=== PATIENT | male | born 1965 | race Caucasian/White ===

== ENCOUNTER 2018-08-10 20:39 | Inpatient (IN) ==
--- NOTE | 2018-08-10 21:16 | ED ---
HPI General Chief Complaint: Chest Pain Stated Complaint: chest pain/pain in lft arm/tingling in fingers/wea Time Seen by Provider: 08/10/18 21:00 Source: patient Mode of arrival: ambulatory Limitations: no limitations History of Present Illness MD complaint: Reports chest pain Onset (ago): hour(s) Time: 19:00 Duration: constant Onset: during exertion Pain location: Reports substernal and left chest Severity: moderate Pain radiation: Reports LUE Relieving factors: nothing Related Data Home Medications Medication Instructions Recorded Confirmed aspirin 81 mg PO DAILY 08/10/18 08/10/18 atorvastatin 40 mg PO DAILY 08/10/18 08/10/18 hydrochlorothiazide 25 mg PO DAILY 08/10/18 08/10/18 levothyroxine [Synthroid] 125 mcg PO DAILY 08/10/18 08/10/18 Previous Rx's Medication Instructions Recorded amlodipine [Norvasc] 5 mg PO DAILY #30 tab 08/12/18 metoprolol tartrate 25 mg PO BID #60 tab 08/12/18 Allergies Allergy/AdvReac Type Severity Reaction Status Date / Time No Known Allergies Allergy Verified 08/10/18 20:48 Review of Systems ROS: all other systems reviewed are negative [facility] Medical History Medical History High cholesterol (Acute) Hypertension (Acute) Hypothyroid (Acute) Social History Social History Substance History: No History of Abuse Second Hand Smoke Exposure: No Smoking Status: Former smoker Tobacco Type: Cigarettes How Often Do You Have a Drink Containing Alcohol: 4 or more times a week Recent Travel in [facility] within the Last 8 Weeks: No Recent Out of Country Travel within the Last 8 Weeks: No Immunization History Tetanus Immunization: >5 Years Exam Narrative Exam Narrative: GENERAL: non toxic appearing awake alert no diaphoresis no vomit SKIN: Warm and dry. HEAD: Atraumatic. Normocephalic. EYES: Pupils equal and round. No scleral icterus. No injection or drainage. ENT: No nasal bleeding or discharge. Mucous membranes pink and moist. NECK: Trachea midline. No JVD. CARDIOVASCULAR: Regular rate and rhythm. RESPIRATORY: No accessory muscle use. Clear to auscultation. Breath sounds equal bilaterally. GASTROINTESTINAL: Abdomen morbidly obese Hepatic and splenic margins not palpable. MUSCULOSKELETAL: Extremities without clubbing, cyanosis, or edema. No obvious deformities. NEUROLOGICAL: Awake and alert. No obvious cranial nerve deficits. Motor grossly within normal limits. Five out of 5 muscle strength in the arms and legs. Normal speech. PSYCHIATRIC: Appropriate mood and affect; insight and judgment normal. Course Initial Documented Vital Signs Temperature 98.5 F 08/10/18 20:49 Pulse Rate 74 08/10/18 20:49 Respiratory Rate 20 08/10/18 20:49 Blood Pressure 177/100 H 08/10/18 20:49 Pulse Oximetry 96 08/10/18 20:49 Last Documented Vital Signs Temperature 98.4 F 08/12/18 07:59 Pulse Rate 60 08/12/18 16:00 Respiratory Rate 18 08/12/18 07:59 Blood Pressure 137/71 08/12/18 07:59 Pulse Oximetry 95 08/12/18 07:59 Critical Care Time Critical Care Time: Yes (CARDIAC ISCHEMIA MANAGEMNET NITRO ASA AND HEPARIN AND CLOSE MONITOR FOR ARRHYTHMIA OR REPROFUSION ARRHYTMIA) Total Critical Care Time: 30 Attestation: 30 mins for cardiac ischemia management asa and nitro and then heparin and close cardiac monitoring for possible vfib or reprofusion arrhythmia Medical Decision Making [facility] Narrative Medical decision making narrative: labs trop ekg CHEST xray asa nitro paste and admit to center for am stress test . FIRST TROP IS POSITIVE ADMITTED TO [facility] AND STARTED ON HEPARIN Medical Screen Exam Complete: Yes Emergency Medical Condition: Yes Differential Diagnosis Differential Diagnosis: pt could have GERD vs ACS myocardial ischemia vs costochondritis brachial plexus nerve praxia from muscle spasm paracervical Lab Data Result diagrams: 08/12/18 02:22 08/12/18 02:22 Lab Results 08/10/18 08/10/18 08/10/18 Range/Units 21:05 21:05 23:00 WBC 8.6 (4.0-11.0) th/mm3 RBC 4.48 L (4.50-5.90) mil/mm3 Hgb 14.1 (13.0-17.0) gm/dL Hct 39.9 (39.0-51.0) % MCV 89.2 (80.0-100.0) fL MCH 31.5 (27.0-34.0) pg MCHC 35.3 (32.0-36.0) % RDW 13.7 (11.6-17.2) % Plt Count 261 (150-450) th/mm3 MPV 8.5 (7.0-11.0) fL Neut % (Auto) 65.7 (16.0-70.0) % Lymph % (Auto) 25.4 (9.0-44.0) % [place] % (Auto) 6.6 (0.0-8.0) % Eos % (Auto) 1.3 (0.0-4.0) % Baso % (Auto) 1.0 (0.0-2.0) % Neut # (Auto) 5.7 (1.8-7.7) th/mm3 Lymph # (Auto) 2.2 (1.0-4.8) th/mm3 [place] # (Auto) 0.6 (0.0-0.9) th/mm3 Eos # (Auto) 0.1 (0.0-0.4) th/mm3 Baso # (Auto) 0.1 (0.0-0.2) th/mm3 WBC Differential . Differential Comment Auto diff final PT 9.8 (9.8-11.6) sec INR 1.0 Ratio APTT 25.6 (24.3-30.1) sec Sodium 140 (136-145) meq/L Potassium 4.0 (3.5-5.1) meq/L Chloride 107 (98-107) meq/L Carbon Dioxide 24.1 (21.0-32.0) meq/L Anion Gap 9 (5-15) meq/L BUN 18 (7-18) mg/dL Creatinine 1.25 (0.60-1.30) mg/dL Estimated GFR 60 L (>89) mL/min Random Glucose 129 H (74-106) mg/dL Hemoglobin A1c (4.3-6.0) % Calcium 8.8 (8.5-10.1) mg/dL Total Bilirubin 0.4 (0.2-1.0) mg/dL AST 60 H (15-37) U/L ALT 50 (12-78) U/L Alkaline Phosphatase 75 (45-117) U/L Total Creatine Kinase (39-308) U/L Troponin I 0.06 H (0.02-0.05) ng/mL Total Protein 8.0 (6.4-8.2) g/dL Albumin 3.7 (3.4-5.0) g/dL Triglycerides (42-150) mg/dL Cholesterol (120-200) mg/dL LDL Cholesterol, Calc (0-99) mg/dL HDL Cholesterol (40.0-60.0) mg/dL Cholesterol/HDL Ratio Ratio TSH (0.358-3.740) uIU/mL 08/11/18 08/11/18 08/11/18 Range/Units 03:47 03:47 03:47 WBC 9.2 (4.0-11.0) th/mm3 RBC 4.22 L (4.50-5.90) mil/mm3 Hgb 13.0 (13.0-17.0) gm/dL Hct 37.9 L (39.0-51.0) % MCV 89.9 (80.0-100.0) fL MCH 30.7 (27.0-34.0) pg MCHC 34.2 (32.0-36.0) % RDW 13.8 (11.6-17.2) % Plt Count 245 (150-450) th/mm3 MPV 8.2 (7.0-11.0) fL Neut % (Auto) (16.0-70.0) % Lymph % (Auto) (9.0-44.0) % [place] % (Auto) (0.0-8.0) % Eos % (Auto) (0.0-4.0) % Baso % (Auto) (0.0-2.0) % Neut # (Auto) (1.8-7.7) th/mm3 Lymph # (Auto) (1.0-4.8) th/mm3 [place] # (Auto) (0.0-0.9) th/mm3 Eos # (Auto) (0.0-0.4) th/mm3 Baso # (Auto) (0.0-0.2) th/mm3 WBC Differential Differential Comment PT (9.8-11.6) sec INR Ratio APTT 29.9 (24.3-30.1) sec Sodium (136-145) meq/L Potassium (3.5-5.1) meq/L Chloride (98-107) meq/L Carbon Dioxide (21.0-32.0) meq/L Anion Gap (5-15) meq/L BUN (7-18) mg/dL Creatinine (0.60-1.30) mg/dL Estimated GFR (>89) mL/min Random Glucose (74-106) mg/dL Hemoglobin A1c (4.3-6.0) % Calcium (8.5-10.1) mg/dL Total Bilirubin (0.2-1.0) mg/dL AST (15-37) U/L ALT (12-78) U/L Alkaline Phosphatase (45-117) U/L Total Creatine Kinase 85 (39-308) U/L Troponin I 0.42 H (0.02-0.05) ng/mL Total Protein (6.4-8.2) g/dL Albumin (3.4-5.0) g/dL Triglycerides (42-150) mg/dL Cholesterol (120-200) mg/dL LDL Cholesterol, Calc (0-99) mg/dL HDL Cholesterol (40.0-60.0) mg/dL Cholesterol/HDL Ratio Ratio TSH (0.358-3.740) uIU/mL 08/11/18 08/11/18 08/11/18 Range/Units 10:00 10:00 10:00 WBC 9.7 (4.0-11.0) th/mm3 RBC 4.32 L (4.50-5.90) mil/mm3 Hgb 13.2 (13.0-17.0) gm/dL Hct 39.1 (39.0-51.0) % MCV 90.6 (80.0-100.0) fL MCH 30.6 (27.0-34.0) pg MCHC 33.8 (32.0-36.0) % RDW 13.6 (11.6-17.2) % Plt Count 230 (150-450) th/mm3 MPV 8.5 (7.0-11.0) fL Neut % (Auto) 65.7 (16.0-70.0) % Lymph % (Auto) 27.3 (9.0-44.0) % [place] % (Auto) 5.1 (0.0-8.0) % Eos % (Auto) 1.2 (0.0-4.0) % Baso % (Auto) 0.7 (0.0-2.0) % Neut # (Auto) 6.4 (1.8-7.7) th/mm3 Lymph # (Auto) 2.6 (1.0-4.8) th/mm3 [place] # (Auto) 0.5 (0.0-0.9) th/mm3 Eos # (Auto) 0.1 (0.0-0.4) th/mm3 Baso # (Auto) 0.1 (0.0-0.2) th/mm3 WBC Differential . Differential Comment Auto diff final PT (9.8-11.6) sec INR Ratio APTT (24.3-30.1) sec Sodium 139 (136-145) meq/L Potassium 3.1 L D (3.5-5.1) meq/L Chloride 105 (98-107) meq/L Carbon Dioxide 24.9 (21.0-32.0) meq/L Anion Gap 9 (5-15) meq/L BUN 16 (7-18) mg/dL Creatinine 1.16 (0.60-1.30) mg/dL Estimated GFR 66 L (>89) mL/min Random Glucose 119 H (74-106) mg/dL Hemoglobin A1c 5.9 (4.3-6.0) % Calcium 8.6 (8.5-10.1) mg/dL Total Bilirubin 0.7 (0.2-1.0) mg/dL AST 40 H (15-37) U/L ALT 42 (12-78) U/L Alkaline Phosphatase 69 (45-117) U/L Total Creatine Kinase (39-308) U/L Troponin I 0.20 H (0.02-0.05) ng/mL Total Protein 7.4 D (6.4-8.2) g/dL Albumin 3.5 (3.4-5.0) g/dL Triglycerides 351 H (42-150) mg/dL Cholesterol 225 H (120-200) mg/dL LDL Cholesterol, Calc 112 H (0-99) mg/dL HDL Cholesterol 43.3 (40.0-60.0) mg/dL Cholesterol/HDL Ratio 5.19 Ratio TSH (0.358-3.740) uIU/mL 08/11/18 08/11/18 08/11/18 Range/Units 10:00 10:00 10:00 WBC (4.0-11.0) th/mm3 RBC (4.50-5.90) mil/mm3 Hgb (13.0-17.0) gm/dL Hct (39.0-51.0) % MCV (80.0-100.0) fL MCH (27.0-34.0) pg MCHC (32.0-36.0) % RDW (11.6-17.2) % Plt Count (150-450) th/mm3 MPV (7.0-11.0) fL Neut % (Auto) (16.0-70.0) % Lymph % (Auto) (9.0-44.0) % [place] % (Auto) (0.0-8.0) % Eos % (Auto) (0.0-4.0) % Baso % (Auto) (0.0-2.0) % Neut # (Auto) (1.8-7.7) th/mm3 Lymph # (Auto) (1.0-4.8) th/mm3 [place] # (Auto) (0.0-0.9) th/mm3 Eos # (Auto) (0.0-0.4) th/mm3 Baso # (Auto) (0.0-0.2) th/mm3 WBC Differential Differential Comment PT (9.8-11.6) sec INR Ratio APTT 28.0 (24.3-30.1) sec Sodium (136-145) meq/L Potassium (3.5-5.1) meq/L Chloride (98-107) meq/L Carbon Dioxide (21.0-32.0) meq/L Anion Gap (5-15) meq/L BUN (7-18) mg/dL Creatinine (0.60-1.30) mg/dL Estimated GFR (>89) mL/min Random Glucose (74-106) mg/dL Hemoglobin A1c (4.3-6.0) % Calcium (8.5-10.1) mg/dL Total Bilirubin (0.2-1.0) mg/dL AST (15-37) U/L ALT (12-78) U/L Alkaline Phosphatase (45-117) U/L Total Creatine Kinase (39-308) U/L Troponin I Cancelled (0.02-0.05) ng/mL Total Protein (6.4-8.2) g/dL Albumin (3.4-5.0) g/dL Triglycerides (42-150) mg/dL Cholesterol (120-200) mg/dL LDL Cholesterol, Calc (0-99) mg/dL HDL Cholesterol (40.0-60.0) mg/dL Cholesterol/HDL Ratio Ratio TSH 4.350 H (0.358-3.740) uIU/mL 08/11/18 08/12/18 08/12/18 Range/Units 19:09 02:22 02:22 WBC 6.9 (4.0-11.0) th/mm3 RBC 4.18 L (4.50-5.90) mil/mm3 Hgb 12.8 L (13.0-17.0) gm/dL Hct 37.7 L (39.0-51.0) % MCV 90.2 (80.0-100.0) fL MCH 30.7 (27.0-34.0) pg MCHC 34.1 (32.0-36.0) % RDW 13.8 (11.6-17.2) % Plt Count 222 (150-450) th/mm3 MPV 8.4 (7.0-11.0) fL Neut % (Auto) (16.0-70.0) % Lymph % (Auto) (9.0-44.0) % [place] % (Auto) (0.0-8.0) % Eos % (Auto) (0.0-4.0) % Baso % (Auto) (0.0-2.0) % Neut # (Auto) (1.8-7.7) th/mm3 Lymph # (Auto) (1.0-4.8) th/mm3 [place] # (Auto) (0.0-0.9) th/mm3 Eos # (Auto) (0.0-0.4) th/mm3 Baso # (Auto) (0.0-0.2) th/mm3 WBC Differential Differential Comment PT (9.8-11.6) sec INR Ratio APTT 26.1 (24.3-30.1) sec Sodium 140 (136-145) meq/L Potassium 3.5 (3.5-5.1) meq/L Chloride 107 (98-107) meq/L Carbon Dioxide 26.7 (21.0-32.0) meq/L Anion Gap 6 (5-15) meq/L BUN 15 (7-18) mg/dL Creatinine 1.07 (0.60-1.30) mg/dL Estimated GFR 72 L (>89) mL/min Random Glucose 91 (74-106) mg/dL Hemoglobin A1c (4.3-6.0) % Calcium 8.2 L (8.5-10.1) mg/dL Total Bilirubin (0.2-1.0) mg/dL AST (15-37) U/L ALT (12-78) U/L Alkaline Phosphatase (45-117) U/L Total Creatine Kinase (39-308) U/L Troponin I (0.02-0.05) ng/mL Total Protein (6.4-8.2) g/dL Albumin (3.4-5.0) g/dL Triglycerides (42-150) mg/dL Cholesterol (120-200) mg/dL LDL Cholesterol, Calc (0-99) mg/dL HDL Cholesterol (40.0-60.0) mg/dL Cholesterol/HDL Ratio Ratio TSH (0.358-3.740) uIU/mL 08/12/18 08/12/18 Range/Units 02:22 10:21 WBC (4.0-11.0) th/mm3 RBC (4.50-5.90) mil/mm3 Hgb (13.0-17.0) gm/dL Hct (39.0-51.0) % MCV (80.0-100.0) fL MCH (27.0-34.0) pg MCHC (32.0-36.0) % RDW (11.6-17.2) % Plt Count (150-450) th/mm3 MPV (7.0-11.0) fL Neut % (Auto) (16.0-70.0) % Lymph % (Auto) (9.0-44.0) % [place] % (Auto) (0.0-8.0) % Eos % (Auto) (0.0-4.0) % Baso % (Auto) (0.0-2.0) % Neut # (Auto) (1.8-7.7) th/mm3 Lymph # (Auto) (1.0-4.8) th/mm3 [place] # (Auto) (0.0-0.9) th/mm3 Eos # (Auto) (0.0-0.4) th/mm3 Baso # (Auto) (0.0-0.2) th/mm3 WBC Differential Differential Comment PT (9.8-11.6) sec INR Ratio APTT 29.9 33.1 H (24.3-30.1) sec Sodium (136-145) meq/L Potassium (3.5-5.1) meq/L Chloride (98-107) meq/L Carbon Dioxide (21.0-32.0) meq/L Anion Gap (5-15) meq/L BUN (7-18) mg/dL Creatinine (0.60-1.30) mg/dL Estimated GFR (>89) mL/min Random Glucose (74-106) mg/dL Hemoglobin A1c (4.3-6.0) % Calcium (8.5-10.1) mg/dL Total Bilirubin (0.2-1.0) mg/dL AST (15-37) U/L ALT (12-78) U/L Alkaline Phosphatase (45-117) U/L Total Creatine Kinase (39-308) U/L Troponin I (0.02-0.05) ng/mL Total Protein (6.4-8.2) g/dL Albumin (3.4-5.0) g/dL Triglycerides (42-150) mg/dL Cholesterol (120-200) mg/dL LDL Cholesterol, Calc (0-99) mg/dL HDL Cholesterol (40.0-60.0) mg/dL Cholesterol/HDL Ratio Ratio TSH (0.358-3.740) uIU/mL Imaging Data Radiologist's impression: Chest X-Ray 08/10/18 21:01 CONCLUSION: No acute cardiopulmonary disease identified. Discharge Plan Discharge Disposition Patient Disposition: Discharge Home Discharge Condition Condition: Good Discharge Order Discharge Orders: Discharge Order (Routine); Ordered 08/12/18 Ordered By: Marcy Vargas Physicians Team ED Provider: Yousif Camacho Primary Care Provider: UNKNOWN, Attending Provider: Marcy Vargas Other Providers: Saturnino Burr Status ED Status: Left Department Discharge Information Discharge Date/Time: 08/11/18 00:31
--- NOTE | 2018-08-10 21:45 | XR ---
EXAM DATE: 08/10/2018 9:01 PM EDT AGE/SEX: 53 years / Male INDICATIONS: Chest pain and left arm discomfort. CLINICAL DATA: This is the patient's initial encounter. Patient reports that signs and symptoms have been present for 1 day and indicates a pain score of 5/10. MEDICAL/SURGICAL HISTORY: Hypercholesterolemia. Hyperthyroidism. Hypothyroidism. None. COMPARISON: No prior exams available for comparison. FINDINGS: Single AP view of the chest. The lungs are clear. Cardiomediastinal silhouette within nor mal limits. No evidence of pleural effusion or pneumothorax. CONCLUSION: No acute cardiopulmonary disease identified. Electronically signed by: Cb Kinney MD 08/10/2018 9:44 PM EDT
[2018-08-10 21:46] LABS: Baso # (Auto) 0.1 th/mm3 (0.0-0.2); Eos # (Auto) 0.1 th/mm3 (0.0-0.4); Eos % (Auto) 1.3 % (0.0-4.0); Hematocrit 39.9 % (39.0-51.0); Hemoglobin 14.1 gm/dL (13.0-17.0); Lymph # (Auto) 2.2 th/mm3 (1.0-4.8); Lymph % (Auto) 25.4 % (9.0-44.0); Mean Corpuscular HGB Conc 35.3 % (32.0-36.0); Mean Corpuscular Hemoglobin 31.5 pg (27.0-34.0); Mean Corpuscular Volume 89.2 fL (80.0-100.0); Mean Platelet Volume 8.5 fL (7.0-11.0); Mono # (Auto) 0.6 th/mm3 (0.0-0.9); Mono % (Auto) 6.6 % (0.0-8.0); Neut # (Auto) 5.7 th/mm3 (1.8-7.7); Neut % (Auto) 65.7 % (16.0-70.0); Platelet Count 261 th/mm3 (150-450); Red Blood Count 4.48 mil/mm3 (4.50-5.90); Red Cell Distribution Width 13.7 % (11.6-17.2); White Blood Count 8.6 th/mm3 (4.0-11.0)
[2018-08-10 21:57] LABS: Alanine Aminotransferase 50 U/L (12-78)
[2018-08-10 22:01] LABS: Alkaline Phosphatase 75 U/L (45-117); Troponin I 0.06 ng/mL (0.02-0.05)
[2018-08-10] MEDS ORDERED: Heparin 10,000 UNITS/10 ML Vial (for IV use) IV.PUSH STA (22:24)
[2018-08-10 22:27] LABS: Albumin 3.7 g/dL (3.4-5.0); Anion Gap 9 meq/L (5-15); Aspartate Aminotransferase 60 U/L (15-37); Blood Urea Nitrogen 18 mg/dL (7-18); Calcium 8.8 mg/dL (8.5-10.1); Carbon Dioxide 24.1 meq/L (21.0-32.0); Chloride 107 meq/L (98-107); Glomerular Filtration Rate 60 mL/min (>89); Glucose,Random 129 mg/dL (74-106); Sodium 140 meq/L (136-145)
[2018-08-10] MEDS ORDERED: Acetaminophen 325 MG Tablet PO PRN (22:39)
[2018-08-10] MEDS ORDERED: Bisacodyl 10 MG Supp RECTAL PRN (22:39)
[2018-08-10] MEDS ORDERED: Morphine Sulfate Inj 2 MG/ML Vial IV.PUSH PRN (22:39)
--- NOTE | 2018-08-10 23:09 | P.HPIM ---
History of Present Illness Primary Care Physician: UNKNOWN History of Present Illness: This is a 53-year-old male with PMH of HTN, Hyperlipidemia and Hypothyroidism who presented to the ER for c/o chest pain. Pt states he had acute onset of substernal "discomfort" earlier this evening, mild-moderate, w/ radiation to left arm. 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 Denies personal h/o cardiac disease, biological mother at age 40yrs-possibly from Acute GA, Father at 93yrs. On arrival, BP 177/100, HR 74, O2 sat 96% on RA, Afebrile. CBC unremarkable. INR 1.0. Chemistry unremarkable. GFR 60. Troponin 0.06. CXR with no acute findings. S/p ASA and NTG in ER w/ some improvement in chest pain, currently pain 1-2/10. Heparin gtt started. - Diagnosis (1) ACS (acute coronary syndrome) (2) HTN (hypertension) Inpatient Certification: I certify that the inpatient services were ordered in accordance with Medicare regulations governing the order. This includes certification that hospital inpatient services are reasonable and necessary and in the case of services not specified as inpatient-only under 42 CFR 419.22(n), that they are appropriately provided as inpatient services in accordance to with the 2-midnight benchmark under 43 CFR 412.3(e) Estimated Total Length of Stay (Days): 2 Plans for Post Hospital Care: Not yet determined Review of Systems PAST FAMILY HISTORY: Unknown, possible history of CAD in mother who at a young age. All other systems reviewed negative except as [facility] - History History Provided By: Patient - Medical History Medical History: Medical History (Last Updated 08/10/18 @ 20:51 by Kavita Garcia) High cholesterol Hypertension Hypothyroid - Tobacco History Smoking Status: Former smoker - Alcohol History How Often Do You Have a Drink Containing Alcohol: Monthly or less - Travel History Recent Travel in the [place] Within the Last 8 Weeks: No Recent Travel Out of the Country Within the Last 8 Weeks: No - Immunization History Tetanus Immunization: >5 Years Medications and Allergies Active Medications: Active Medications Acetaminophen (Tylenol) 650 mg PO Q4H PRN PRN Reason: Temp > 100.4 Al Hydroxide/Mg Hydroxide (Milk Of Magnesia Liq) 30 ml PO Q12H PRN PRN Reason: Mild Constipation Aspirin (Ecotrin) 81 mg PO DAILY BIJAL Bisacodyl (Dulcolax Supp) 10 mg RECTAL DAILY PRN PRN Reason: SEVERE CONSITIPATION Heparin Sodium/Dextrose (Heparin/D5w 25,000 U/250 Ml) 25,000 unit in 250 mls @ 0 mls/hr IV.CONT TITRATE PRN; Protocol PRN Reason: Per Protocol Sodium Chloride (Ns Inj) 1,000 mls @ 100 mls/hr IV.CONT .Q10H BIJAL Lactulose (Lactulose Liq) 30 ml PO DAILY PRN PRN Reason: SEVERE CONSITIPATION Morphine Sulfate (Morphine Inj) 2 mg IV.PUSH Q4H PRN PRN Reason: PAIN 6-10 Nitroglycerin (Nitro-Bid 2% Oint) 0.5 inch TOPICAL Q6HR PRN PRN Reason: CHEST PAIN Ondansetron HCl (Zofran Inj) 4 mg IV.PUSH Q6H PRN PRN Reason: NAUSEA OR VOMITING Senna/Docusate Sodium (Paloma-Colace) 1 tab PO BID BIJAL Sennosides (Senokot) 17.2 mg PO Q12H PRN PRN Reason: Moderate Constipation Sodium Chloride (Ns Flush) 2 ml IV.FLUSH UNSCH PRN PRN Reason: FLUSH AFTER USING IV ACCESS Sodium Chloride (Ns Flush) 2 ml IV.FLUSH BID BIJAL Sodium Chloride (Ns Flush) 2 ml IV.FLUSH PRN PRN PRN Reason: FLUSH AFTER USING IV ACCESS Allergies Allergy/AdvReac Type Severity Reaction Status Date / Time No Known Allergies Allergy Verified 08/10/18 20:48 Home Medications Medication Instructions Recorded Confirmed Type aspirin 81 mg PO DAILY 08/10/18 08/10/18 History atorvastatin 40 mg PO DAILY 08/10/18 08/10/18 History hydrochlorothiazide 25 mg PO DAILY 08/10/18 08/10/18 History levothyroxine [Synthroid] 125 mcg PO DAILY 08/10/18 08/10/18 History Exam Vital signs: Vital Signs 08/10/18 20:49 08/10/18 21:08 08/10/18 21:09 Temperature 98.5 F Pulse Rate 74 78 Respiratory Rate 20 16 Blood Pressure 177/100 H 168/90 H Pulse Oximetry 96 98 96 10/13/18 22:16 Temperature Pulse Rate 77 Respiratory Rate 18 Blood Pressure 168/90 H Pulse Oximetry 96 Intake & Output 08/10/18 08/10/18 08/11/18 06:59 18:59 06:59 Weight 90.718 kg Narrative: PE: GENERAL: Pleasant middle-aged male in no acute distress, appears much younger than stated age. SKIN: Focused skin assessment warm and dry. HEENT: PERRLA, EOMI. No scleral icterus or conjunctival pallor. No lid lag or facial droop. CARDIOVASCULAR: Regular rate and rhythm. No obvious murmurs to auscultation. No chest tenderness to palpation. RESPIRATORY: No obvious rhonchi or wheezing. Clear to auscultation. Breath sounds equal bilaterally. GASTROINTESTINAL: Abdomen soft, non-tender, nondistended. BS normal. MUSCULOSKELETAL: Extremities without clubbing, cyanosis, or edema. No obvious deformities. NEUROLOGICAL: Awake, alert and oriented x4. No focal neurologic deficits. Moving both upper and lower extremities spontaneously. PSYCHIATRIC: Appropriate mood and affect. Insight and judgment normal. Results - Labs CBC & Chem 7: 08/10/18 21:05 08/10/18 21:05 Labs: Short CBC 08/10/18 Range/Units 21:05 WBC 8.6 (4.0-11.0) th/mm3 Hgb 14.1 (13.0-17.0) gm/dL Hct 39.9 (39.0-51.0) % Plt Count 261 (150-450) th/mm3 BMP 08/10/18 21:05 Sodium 140 Potassium 4.0 Chloride 107 Carbon Dioxide 24.1 BUN 18 Creatinine 1.25 Calcium 8.8 Cardiac Enzymes 08/10/18 Range/Units 21:05 Troponin I 0.06 H (0.02-0.05) ng/mL Liver Function 08/10/18 Range/Units 21:05 Total Bilirubin 0.4 (0.2-1.0) mg/dL AST 60 H (15-37) U/L ALT 50 (12-78) U/L Alkaline Phosphatase 75 (45-117) U/L Albumin 3.7 (3.4-5.0) g/dL - Imaging Impressions Chest X-Ray 08/10/18 21:01 CONCLUSION: No acute cardiopulmonary disease identified. Caprini VTE Risk Assessment Caprini VTE Risk Assessment: No/Low Risk (score <= 1) Caprini Risk Assessment Model: Point Value = 1 Point Value = 2 Point Value = 3 Point Value = 5 Age 41-60 Minor surgery BMI > 25 kg/m2 Swollen legs Varicose veins or History of unexplained or recurrent spontaneous Oral contraceptives or hormone replacement Sepsis (< 1 month) Serious lung disease, including pneumonia (< 1 month) Abnormal pulmonary function Acute myocardial infarction Congestive heart failure (< 1 month) History of inflammatory bowel disease Medical patient at bed rest Age 61-74 Arthroscopic surgery Major open surgery (> 45 min) Laparoscopic surgery (> 45 min) Malignancy Confined to bed (> 72 hours) Immobilizing plaster cast Central venous access Age >= 75 History of VTE Family history of VTE Factor V Leiden Prothrombin [id number] Lupus anticoagulant Anticardiolipin antibodies Elevated serum homocysteine Heparin-induced thrombocytopenia Other congenital or acquired thrombophilia Stroke (< 1 month) Elective arthroplasty Hip, pelvis, or leg fracture Acute spinal cord injury (< 1 month) Prophylaxis Regimen: Total Risk Factor Score Risk Level Prophylaxis Regimen 0-1 Low Early ambulation 2 Moderate Order ONE of the following: *Sequential Compression Device (SCD) *Heparin 5000 units SQ BID 3-4 Higher Order ONE of the following medications: *Heparin 5000 units SQ TID *Enoxaparin/Lovenox 40 mg SQ daily (WT < 150 kg, CrCl > 30 mL/min) *Enoxaparin/Lovenox 30 mg SQ daily (WT < 150 kg, CrCl > 10-29 mL/min) *Enoxaparin/Lovenox 30 mg SQ BID (WT < 150 kg, CrCl > 30 mL/min) AND/OR *Sequential Compression Device (SCD) 5 or more Highest Order ONE of the following medications: *Heparin 5000 units SQ TID (Preferred with Epidurals) *Enoxaparin/Lovenox 40 mg SQ daily (WT < 150 kg, CrCl > 30 mL/min) *Enoxaparin/Lovenox 30 mg SQ daily (WT < 150 kg, CrCl > 10-29 mL/min) *Enoxaparin/Lovenox 30 mg SQ BID (WT < 150 kg, CrCl > 30 mL/min) AND *Sequential Compression Device (SCD) Assessment and Plan - Assessment (1) ACS (acute coronary syndrome) Code(s): I24.9 - Acute ischemic heart disease, unspecified Status: Acute (2) HTN (hypertension) Code(s): I10 - Essential (primary) hypertension Status: Acute - Plan A/P: 1. ACS: acute onset of substernal chest pain w/ radiation to LUE, suspected family history of CAD in Mother who at 40yrs, no personal h/o CAD, however multiple risk factors, including HTN and Hyperlipidemia. Initial trop 0.06, will admit to [facility], check serial cardiac enzymes for trend, consult Cardiology for further eval/intervention. Continue Heparin gtt, resume home ASA and Statin , start Metoprolol. NPO after midnight, IVF. NTG/Morphine prn. Check lipid profile and Hgb A1c. CXR w/ no acute findings, images reviewed. 2. HTN: Uncontrolled. BP 170's on arrival, likely compounded by chest pain. Start Metoprolol as above, monitor BP closely, antihypertensives as needed for BP >180 3. DVT Prophylaxis: Heparin gtt 4. Social work for d/c planning as needed 5. Case discussed w/ ER physician at length, labs/records/imaging reviewed by me.
[2018-08-10 23:37] LABS: Activated Partial Thrombo Time 25.6 sec (24.3-30.1); Prothrombin Time 9.8 sec (9.8-11.6)
[2018-08-10] MEDS ORDERED: diazePAM 5 MG Tablet PO PRN (23:46)
[2018-08-10] MEDS: Sod Chloride 0.9% Inj 1,000 ML IV.CONT SCH (23:46)
[2018-08-10] MEDS: Heparin Drip 25,000 UNIT/250 ML BAG IV.CONT PRN (23:48)
[2018-08-11 04:09] LABS: Hematocrit 37.9 % (39.0-51.0); Mean Corpuscular HGB Conc 34.2 % (32.0-36.0); Mean Corpuscular Hemoglobin 30.7 pg (27.0-34.0); Mean Corpuscular Volume 89.9 fL (80.0-100.0); Mean Platelet Volume 8.2 fL (7.0-11.0); Platelet Count 245 th/mm3 (150-450); Red Blood Count 4.22 mil/mm3 (4.50-5.90); Red Cell Distribution Width 13.8 % (11.6-17.2); White Blood Count 9.2 th/mm3 (4.0-11.0)
[2018-08-11 04:49] LABS: Troponin I 0.42 ng/mL (0.02-0.05)
[2018-08-11] MEDS: Levothyroxine 125 MCG Tablet PO SCH (06:28)
[2018-08-11] MEDS: Senna/Docusate Sodium 8.6/50 MG Tablet PO SCH ×2 (09:29→20:31)
[2018-08-11] MEDS: Metoprolol Tartrate 25 MG Tablet PO SCH ×2 (09:29→20:31)
[2018-08-11 10:20] LABS: Baso # (Auto) 0.1 th/mm3 (0.0-0.2); Baso % (Auto) 0.7 % (0.0-2.0); Eos # (Auto) 0.1 th/mm3 (0.0-0.4); Eos % (Auto) 1.2 % (0.0-4.0); Hematocrit 39.1 % (39.0-51.0); Hemoglobin 13.2 gm/dL (13.0-17.0); Lymph # (Auto) 2.6 th/mm3 (1.0-4.8); Lymph % (Auto) 27.3 % (9.0-44.0); Mean Corpuscular HGB Conc 33.8 % (32.0-36.0); Mean Corpuscular Hemoglobin 30.6 pg (27.0-34.0); Mean Corpuscular Volume 90.6 fL (80.0-100.0); Mean Platelet Volume 8.5 fL (7.0-11.0); Mono # (Auto) 0.5 th/mm3 (0.0-0.9); Mono % (Auto) 5.1 % (0.0-8.0); Neut # (Auto) 6.4 th/mm3 (1.8-7.7); Neut % (Auto) 65.7 % (16.0-70.0); Platelet Count 230 th/mm3 (150-450); Red Blood Count 4.32 mil/mm3 (4.50-5.90); Red Cell Distribution Width 13.6 % (11.6-17.2); White Blood Count 9.7 th/mm3 (4.0-11.0)
--- NOTE | 2018-08-11 10:49 | P.PNIM ---
Subjective Interval history: Doing well this morning. Denies chest pain or shortness of breath since he was started on nitro. Physical Exam Vital signs: Vital Signs 08/10/18 20:49 08/10/18 21:08 08/10/18 21:09 Temperature 98.5 F Pulse Rate 74 78 Respiratory Rate 20 16 Blood Pressure 177/100 H 168/90 H Pulse Oximetry 96 98 96 08/10/18 22:16 08/10/18 23:21 08/11/18 00:46 Temperature 98.8 F Pulse Rate 77 80 79 Respiratory Rate 18 16 16 Blood Pressure 168/90 H 155/89 H 165/93 H Pulse Oximetry 96 08/11/18 00:50 08/11/18 01:00 08/11/18 02:00 Temperature Pulse Rate 90 77 Respiratory Rate Blood Pressure Pulse Oximetry 95 08/11/18 03:00 08/11/18 04:00 08/11/18 05:00 Temperature 98.3 F Pulse Rate 70 71 73 Respiratory Rate 16 Blood Pressure 148/76 H Pulse Oximetry 08/11/18 06:00 08/11/18 09:18 Temperature Pulse Rate 68 Respiratory Rate Blood Pressure Pulse Oximetry 96 Intake & Output 08/10/18 08/11/18 08/11/18 18:59 06:59 18:59 Intake Total 30 / 30 Output Total 0 / 0 Balance 30 / 30 Weight 90.7 kg Intake: Oral 30 / 30 Output: Urine 0 / 0 Other: Date of Last Bowel Movement 08/10/18 Narrative: GENERAL: This is a well-nourished, well-developed patient, in no apparent distress. CARDIOVASCULAR: Normal rate and regular rhythm without murmurs, gallops, or rubs. RESPIRATORY: Good respiratory efforts. Breath sounds equal and clear to auscultation bilaterally. GASTROINTESTINAL: Abdomen soft, non-tender, non-distended. Normal active bowel sounds MUSCULOSKELETAL: Extremities without cyanosis, or edema. NEURO: Alert & Oriented x4 to person, place, time, situation. Moves all ext x4 PSYCH: Appropriate mood and affect. Results - Labs CBC & Chem 7: 08/11/18 10:00 08/11/18 10:00 Laboratory Results - last 24 hr 08/10/18 08/10/18 08/10/18 21:05 21:05 23:00 WBC 8.6 RBC 4.48 L Hgb 14.1 Hct 39.9 MCV 89.2 MCH 31.5 MCHC 35.3 RDW 13.7 Plt Count 261 MPV 8.5 Neut % (Auto) 65.7 Lymph % (Auto) 25.4 [place] % (Auto) 6.6 Eos % (Auto) 1.3 Baso % (Auto) 1.0 Neut # (Auto) 5.7 Lymph # (Auto) 2.2 [place] # (Auto) 0.6 Eos # (Auto) 0.1 Baso # (Auto) 0.1 WBC Differential . Differential Comment Auto diff final PT 9.8 INR 1.0 APTT 25.6 Sodium 140 Potassium 4.0 Chloride 107 Carbon Dioxide 24.1 Anion Gap 9 BUN 18 Creatinine 1.25 Estimated GFR 60 L Random Glucose 129 H Calcium 8.8 Total Bilirubin 0.4 AST 60 H ALT 50 Alkaline Phosphatase 75 Total Creatine Kinase Troponin I 0.06 H Total Protein 8.0 Albumin 3.7 08/11/18 08/11/18 08/11/18 03:47 03:47 03:47 WBC 9.2 RBC 4.22 L Hgb 13.0 Hct 37.9 L MCV 89.9 MCH 30.7 MCHC 34.2 RDW 13.8 Plt Count 245 MPV 8.2 Neut % (Auto) Lymph % (Auto) [place] % (Auto) Eos % (Auto) Baso % (Auto) Neut # (Auto) Lymph # (Auto) [place] # (Auto) Eos # (Auto) Baso # (Auto) WBC Differential Differential Comment PT INR APTT 29.9 Sodium Potassium Chloride Carbon Dioxide Anion Gap BUN Creatinine Estimated GFR Random Glucose Calcium Total Bilirubin AST ALT Alkaline Phosphatase Total Creatine Kinase 85 Troponin I 0.42 H Total Protein Albumin 08/11/18 08/11/18 08/11/18 10:00 10:00 10:00 WBC 9.7 RBC 4.32 L Hgb 13.2 Hct 39.1 MCV 90.6 MCH 30.6 MCHC 33.8 RDW 13.6 Plt Count 230 MPV 8.5 Neut % (Auto) 65.7 Lymph % (Auto) 27.3 [place] % (Auto) 5.1 Eos % (Auto) 1.2 Baso % (Auto) 0.7 Neut # (Auto) 6.4 Lymph # (Auto) 2.6 [place] # (Auto) 0.5 Eos # (Auto) 0.1 Baso # (Auto) 0.1 WBC Differential . Differential Comment Auto diff final PT INR APTT 28.0 Sodium Potassium Chloride Carbon Dioxide Anion Gap BUN Creatinine Estimated GFR Random Glucose Calcium Total Bilirubin AST ALT Alkaline Phosphatase Total Creatine Kinase Troponin I Cancelled Total Protein Albumin - Imaging Impressions Chest X-Ray 08/10/18 21:01 CONCLUSION: No acute cardiopulmonary disease identified. Assessment and Plan - Assessment (1) ACS (acute coronary syndrome) Code(s): I24.9 - Acute ischemic heart disease, unspecified Status: Acute (2) HTN (hypertension) Code(s): I10 - Essential (primary) hypertension Status: Acute - Plan 53-year-old male with: Acute coronary syndrome/NSTEMI: -Currently on heparin drip, nitro, Lipitor, Lopressor, statin. Morphine as needed - Cardiology consulted. Plan for heart catheterization in a.m. HTN: Uncontrolled. BP 170's on arrival, likely compounded by chest pain. Started on Metoprolol as above, monitor BP closely, antihypertensives as needed for BP >180 -Blood pressure improved. Hypothyroidism: - Continue Synthroid. Check TSH. DVT Prophylaxis: Heparin
[2018-08-11 10:54] LABS: Alanine Aminotransferase 42 U/L (12-78); Albumin 3.5 g/dL (3.4-5.0); Alkaline Phosphatase 69 U/L (45-117); Anion Gap 9 meq/L (5-15); Aspartate Aminotransferase 40 U/L (15-37); Blood Urea Nitrogen 16 mg/dL (7-18); Calcium 8.6 mg/dL (8.5-10.1); Carbon Dioxide 24.9 meq/L (21.0-32.0); Chloride 105 meq/L (98-107); Chol/HDL Ratio 5.19 Ratio; Cholesterol 225 mg/dL (120-200); Glomerular Filtration Rate 66 mL/min (>89); Glucose,Random 119 mg/dL (74-106); HDL Cholesterol 43.3 mg/dL (40.0-60.0); LDL Cholesterol,Calculated 112 mg/dL (0-99); Potassium 3.1 meq/L (3.5-5.1); Sodium 139 meq/L (136-145); Total Protein 7.4 g/dL (6.4-8.2); Triglycerides 351 mg/dL (42-150)
[2018-08-11 14:30] LABS: Hemoglobin A1c 5.9 % (4.3-6.0)
--- NOTE | 2018-08-11 14:30 | ECG ---
Date Performed: 08/10/2018 Time Performed: 20:57:33 PTAGE: 53 years EKG: Sinus rhythm NORMAL ECG NO PREVIOUS TRACING DOCTOR: Addi Bradley Interpretating Date/Time 08/11/2018 14:29:36
--- NOTE | 2018-08-11 18:32 | MB ---
cc: Saturnino Burr DO DATE: 08/11/2018 REASON FOR CONSULTATION: Chest pain, elevated troponin. HISTORY OF PRESENT ILLNESS: Jesus Tubbs is a pleasant 53-year-old male who presented to [facility] Emergency Room due to chest pain. He states that he had an acute onset of substernal discomfort early in the evening that he had never had before. He felt that it was mild to moderate and kind of radiated to his left arm. 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 He continued to have the discomfort and his left hand started going a little more numb and so he presented to the Emergency Room. On arrival, he was found to have an elevated troponin and he has been started on a heparin drip as well as a nitroglycerin patch. In seeing him this morning, he denies chest pain, shortness of breath or palpitations. PAST MEDICAL HISTORY: 1. Hyperlipidemia. 2. Hypertension. 3. Hypothyroidism. PAST SURGICAL HISTORY: Denies. ALLERGIES: NO KNOWN DRUG ALLERGIES. MEDICATIONS: 1. Synthroid 125 mcg daily. 2. Hydrochlorothiazide 25 mg daily. 3. Lipitor 40 mg daily. 4. Aspirin 81 mg daily. FAMILY HISTORY: Mother at a young age, possibly from an acute MD, although this is unsure. Father at the age of 93. SOCIAL HISTORY: The patient is a former smoker. He rarely drinks. Denies illicit drug abuse. REVIEW OF SYSTEMS: Fourteen systems were reviewed including osteopathic. Pertinent positives and negatives above, otherwise negative. PHYSICAL EXAMINATION: VITAL SIGNS: Temperature 98.7, heart rate 75, blood pressure 139/73, respirations 18, pulse oximetry 98% on room air. GENERAL: The patient appears well, in no acute distress, alert, awake and oriented x 3. HEENT: Extraocular muscles intact. Mucous membranes moist. NECK: Supple. No JVD at 45 degrees. No carotid bruits heard bilaterally. Carotid upstroke is brisk in nature. HEART: Regular rate and rhythm. Positive first and second heart sounds with no noted murmurs, gallops or rubs. LUNGS: Clear to auscultation bilaterally. No wheezes, rales or rhonchi. ABDOMEN: Soft, nontender, nondistended. No organomegaly noted. EXTREMITIES: Show no clubbing, cyanosis or edema. Femoral and distal pulses are intact bilaterally. NEUROLOGIC: No focal deficits. SKIN: Warm, dry and intact. OSTEOPATHIC: No kyphoscoliosis, lordosis or paraspinal tender points. LABORATORY DATA: Hemoglobin 13.2, hematocrit 39.1, platelets 230. Potassium 3.1, BUN 16, creatinine 1.16. Troponin 0.42. Triglycerides 351, cholesterol 225, LDL 112, HDL 43. Electrocardiogram (08/11/2018 at 0339 hours), normal sinus rhythm, no acute ST-T wave changes. IMPRESSION: 1. Chest pain concerning for coronary insufficiency. 2. Opd-LI-dgpyarpyi myocardial infarction. 3. Hypertension. 4. Hyperlipidemia. 5. Hypothyroidism. 6. Remote tobacco abuse. RECOMMENDATIONS: 1. Jesus Tubbs presented with chest pain which sounds typical for coronary insufficiency. He is found to have an elevated troponin and because of this, he will be recommended a cardiac catheterization. 2. Risks, benefits and alternatives have been explained to him and he consents to such. We will plan on him being n.p.o. tonight for a plan for a cardiac catheterization tomorrow morning. If in that time he becomes hemodynamically or electrically unstable or has chest pain which is unrelieved by nitroglycerin, he will be taking in a more urgent fashion. 3. We will check a 2-D echo to look at his overall left ventricular function, cardiac structure and possible valvulopathies. 4. He will continue on a heparin drip. 5. We will most likely attempt to increase his statin therapy. He also came in quite hypertensive and this will need to be watched as he will need blood pressure control for detention. 6. Further recommendations will be made based on coronary visualization. Thank you for allowing me to see Jesus Tubbs. If there are any questions, please do not hesitate to call. DO KWAN Edmonds/piotr , 03:04 PM , 03:13 PM
[2018-08-11] MEDS: Sod Chloride 0.9% Inj 1,000 ML IV.CONT SCH ×2 (20:32→20:33)
[2018-08-11] MEDS: Heparin Drip 25,000 UNIT/250 ML BAG IV.CONT PRN (20:33)
[2018-08-11 22:18] VITALS: O2SAT 95
[2018-08-12 03:04] LABS: Hematocrit 37.7 % (39.0-51.0); Hemoglobin 12.8 gm/dL (13.0-17.0); Mean Corpuscular HGB Conc 34.1 % (32.0-36.0); Mean Corpuscular Hemoglobin 30.7 pg (27.0-34.0); Mean Corpuscular Volume 90.2 fL (80.0-100.0); Mean Platelet Volume 8.4 fL (7.0-11.0); Platelet Count 222 th/mm3 (150-450); Red Blood Count 4.18 mil/mm3 (4.50-5.90); Red Cell Distribution Width 13.8 % (11.6-17.2); White Blood Count 6.9 th/mm3 (4.0-11.0)
[2018-08-12 03:25] LABS: Calcium 8.2 mg/dL (8.5-10.1); Carbon Dioxide 26.7 meq/L (21.0-32.0); Potassium 3.5 meq/L (3.5-5.1)
[2018-08-12] MEDS: Sod Chloride 0.9% Inj 1,000 ML IV.CONT SCH (05:23)
[2018-08-12] MEDS: Levothyroxine 125 MCG Tablet PO SCH (05:23)
[2018-08-12] MEDS ORDERED: Heparin/NS PF Inj 1,500 ML ONE (07:45)
[2018-08-12] MEDS ORDERED: Heparin 10,000 UNITS/10 ML Vial (for IV use) ONE (07:46)
[2018-08-12 08:07] VITALS: BP 137/71; RESP 18; TEMP 98.4
[2018-08-12] MEDS ORDERED: fentaNYL Citrate Inj 100 MCG/2 ML Ampul ONE (08:36)
[2018-08-12] MEDS: Metoprolol Tartrate 25 MG Tablet PO SCH (09:00)
[2018-08-12] MEDS: Senna/Docusate Sodium 8.6/50 MG Tablet PO SCH (09:00)
--- NOTE | 2018-08-12 09:27 | CATHPROC ---
[employer] HIS Report Study Information Study Number Admission Scheduled Start Study Start [id number] Aug 10 2018 10:39PM 08/12/2018 Aug 12 2018 7:47AM [facility] Cath Endovascular Study Admit Source Facility Department Emergency department [facility] - Racing Mechanic Physician and Clinical Staff Initial MD Burr, Saturnino Security Officers [employer] Guard[employer]m Weaver RN, [place] Frazier,RT(R) (BS) Scrub Stephanie Motley,HIMANSHU TECH2 Procedures Performed Procedure Location (Site) Vessel Name Coronary Angiograms LCA Left Coronary Coronary Angiograms RCA Right Coronary L Heart Cath Wire insertion Radial (right) Radial Art. Equipment Time Community Sports Coordinator Description Size Mfg Part Number Used/Scraped TRANSDUCER, TRUWAVE [id number] 08:12 HIGHTOWER GARCIA * Used W/STOCKCOCK *[id number] [id number] *[id number] [id number] *[id number] *[id number] 08:12 [place] BLANKET,WARM AIR CCL * Used *[id number] 08:12 [place] PACK, CCL CUSTOM * Used *[id number] 08:12 [place] SUPPORT, ARTERIAL ADULT [id number] *[id number] Used BAND, RADIAL COMPRESSION TR [id number] 08:57 [employer] MEDICAL 29CM Used LARGE 29 *[id number] 08:12 [employer] WIRE, EXCHANGE 260CM 3MMJ 260CM Used *[id number] 08:12 NAMIC MANIFOLD, 4 PORT * Used *[id number] 08:12 [employer]COMED OMNIPAQUE, 350 MG, 150ML 150ML [id number] Used SHEATH, FR6 TRANSRADIAL [id number] 08:12 [employer] MEDICAL FR 6 Used SLENDER 10CM *[id number] History: Current Medications Medication Dosage/Unit Route Frequency Last Date/Time Taken HEPARIN NTG Patch Statins (any) Beta Jeanmarie ASA History: Allergies Allergy Reaction No Known Allergies History: Risk Factors Family History of Hypertension Dyslipidemia Previous ME Previous Heart Failure Premature CAD Yes Yes Yes No No Prior Valve Prior PCI Prior CABG Surgery No No No Cerebrovascular Peripheral Artery Chronic Lung On Dialysis Diabetes Disease Disease Disease No No No No No History: Symptoms/Diagnosis Selection Items Chest pain History: Stress Tests Stress or Imaging Studies Performed No History: Other Current Smoker Method Quit Packs a Day Years Used Pack Years No Cigarettes 20 Years Ago 1 10 10 Labs Hgb (g/dl) Hct (%) WBC (l/cumm) Platelets (thousands) 11.60-17.00 35.00-51.00 4.00-11.00 150.00-450.00 12.5 37.7 6.9 222 Glucose (mg/dl) BUN (mg/dl) Creatinine (mg/dl) BUN:Creatinine (1:x) 74.00-106.00 7.00-18.00 0.50-1.30 10.00-20.00 91 15 1.0 15 Na (meq/l) K (meq/l) 136.00-145.00 3.50-5.10 140 3.5 INR (PTT:PT) 0.90-1.10 1 Troponin I (ng/ml) CPK-MB (ng/ML) 0.02-0.05 0.50-3.60 0.2 Not Drawn Medication Medication Total Dose (Bolus/Oral) Medication Total Dosage/Unit 1% XYLOCAINE 1 mL FENTANYL 50 mcg RADIAL COCKTAIL 1 units VERSED 1 mg Medications (Bolus/Oral) Medication Time Given Dosage/Unit Administered By Reason 1% XYLOCAINE 08/12/2018 8:41:56 AM 1 mL Saturnino Burr 1 mL 1% XYLOCAINE given in lab by Saturnino Burr in Right Radial via Subcutaneous. VERSED 08/12/2018 8:41:57 AM 1 mg Christiano Weaver RN 1 mg VERSED given in lab by Christiano Weaver RN via Peripheral IV. FENTANYL 08/12/2018 8:42:04 AM 50 mcg Christiano Weaver RN 50 mcg FENTANYL given in lab by Christiano Weaver RN via Peripheral IV. Ntg 200mcg Verapamil 2.5mg Heparin RADIAL COCKTAIL 08/12/2018 8:43:45 AM 1 units Saturnino Burr 3000U 1 units RADIAL COCKTAIL given in lab by Saturnino Burr in Right Radial via Radial. Reason: Ntg 2 00mcg Verapamil 2.5mg Heparin 5000U. Medication (Drip) Medication Time Given Dosage/Unit Concentration/Unit Diluent (ml) Solution HEPARIN DRIP STOPPED 08/12/2018 8:00:29 AM 0 units/hr 0 D5W Patient arrived on 0 units/hr HEPARIN DRIP STOPPED. Pump/Drip Flow = 0 ml/hr using D5W. IV Solutions 08/12/2018 8:09:45 AM 0 mL (IV) 1000 NaCl .9 Patient arrived on IV Solutions in Left Forearm via Peripheral IV. Pump/Drip Flow = 30 ml/hr using Na Cl .9. Initial Case Assessment Cardiovascular HR Rhythm NIBP Chest Pain 74 reg 175/91 0 Edema Present Skin color Skin None Normal Warm Dry Circulatory - Right Pulses Dorsalis Pedis Femoral Radial 1 1 2 Scale (0,1,2,3,4,d) Circulatory - Left Pulses Dorsalis Pedis Femoral Radial 1 1 Scale (0,1,2,3,4,d) Circulatory - Lower Extremities Color Lower Right Color Lower Left Normal Normal Neurological State Oriented to time-place- Alert Moves all extremities person Respiration - General Respiration Rate SpO2 (%) (B/min) 8 96 Chronological Log Time Study Chronological Log 8:00:29 Patient arrived on 0 units/hr HEPARIN DRIP STOPPED. Pump/Drip Flow = 0 ml/hr using D5W. 8:09:29 Patient arrived via Bed. 8:09:29 Patient Name, D.O.B, / Armband Verified By R.N. 8:09:30 Consent signed by the physician and the patient and verified by the Racing Mechanic staff. 8:09:32 Pre-op and post- op instructions given; patient acknowledges understanding of instructions. 8:09:34 Presedation assessment performed by Racing Mechanic RN. 8:09:35 Allens test performed on the right radial and ulnar artery. 8:09:39 Patient has been NPO for More than 6Hrs. 8:09:40 Skin Breakdown- none observed or reported 8:09:41 Patient Warmer Placed on the Table. 8:09:44 Adin Prominences Protected 8:09:45 A # 20 IV was noted in the Antecubital (right). Grade = 0 8:09:45 Patient arrived on IV Solutions in Left Forearm via Peripheral IV. Pump/Drip Flow = 30 ml/h r using NaCl .9. 8:09:46 A # 20 IV was noted in the Forearm (left). Grade = 0 8:09:46 History and physical on the chart or being dictated. Assessment: Initial Case, HR=74 BPM, Rhythm=reg, MYLR=239/91 mmhg, Chest Pain=0, Edema=None, Col or=Normal, Skin = Warm, Dry Right Pulses: Dominick Ped=1, Femoral=1, Radial=2 Left Pulses: Dominick Ped=1, Femoral=1 8:09:47 Lower Right Extremities: Color=Normal Lower Left Extremities: Color=Normal Neurological: State=Alert, Ox3, GARBER Respiration: Resp=8 B/min, SpO2=96 % Vitals capture started with the following parameters, Patient=Adult, Interval=5 min, Initial Pre jbove=415 mmHg, 8:16:27 Deflation Rate=5 mmHg, Cuff placed on Left Arm 8:16:31 Reference ECG taken 8:17:46 HR=71 bpm, ZFQG=237/91 mmhg, SpO2=95.0 %, Resp=22 B/min, Pain=0, Dada=10, Skelton=2 8:20:45 Right Radial and groin(s) prepped with 2% chlorhexidine, and draped after a 3 min. waiting t elli. 8:22:11 HR=66 bpm, BYIK=868/100 mmhg, SpO2=94.0 %, Resp=21 B/min, Pain=0, Dada=10, Skelton=2 8:27:12 HR=74 bpm, SRIB=735/99 mmhg, SpO2=95.0 %, Resp=23 B/min, Pain=0, Dada=10, Skelton=2 8:27:22 Pressure channel 1 zeroed. 8:27:31 MD paged 8:32:13 HR=74 bpm, LLRQ=350/97 mmhg, SpO2=93.0 %, Resp=17 B/min, Pain=0, Dada=10, Skelton=2 8:36:18 MD arrived 8:37:12 HR=74 bpm, QTCD=588/100 mmhg, SpO2=93.0 %, Resp=49 B/min, Pain=0, Dada=10, Skelton=2 Time Out. Correct patient, correct procedure, correct physician, labs, allergies, and equipment verified with cheesemaking laborer 8:41:04 team present. Fire risk assesment completed (see hard stop sheet for coding). Time Out Concu rred by MD and individual staff in procedure. 8:41:19 Case Start 8:41:56 1 mL 1% XYLOCAINE given in lab by Saturnino Burr in Right Radial via Subcutaneous. 8:41:57 1 mg VERSED given in lab by Christiano Weaver RN via Peripheral IV. 8:42:04 50 mcg FENTANYL given in lab by Christiano Weaver RN via Peripheral IV. 8:42:13 HR=73 bpm, CYOK=404/93 mmhg, SpO2=93.0 %, Resp=28 B/min, Pain=0, Dada=10, Skelton=2 8:43:18 Access site was Right Radial Artery . A SHEATH, FR6 TRANSRADIAL SLENDER 10CM FR 6 was advanced into the Radial (right) using the Zac ross 8:43:34 technique. 1 units RADIAL COCKTAIL given in lab by Saturnino Burr in Right Radial via Radial. Reason: Ntg 200mcg 8:43:45 Verapamil 2.5mg Heparin 5000U. A JR 4.0 INFINITI CATHETER FR 5 was advanced over a wire. OMNIPAQUE, 350 MG, 150ML 150ML was use d for 8:44:50 injections. 8:47:08 HR=69 bpm, GFWX=946/70 mmhg, SpO2=88.0 %, Resp=36 B/min, Pain=0, Dada=10, Skelton=2 Recorded Pressure: LV, HR=70, Condition=Condition 1 8:47:08 (Left Ventricle) LV 115/15/20 Recorded Pressure: LV, Ao, HR=73, Condition=Condition 1 8:47:23 (Left Ventricle) LV 119/18/18, (Aorta) Ao 114/79/94 8:48:05 The RCA was injected and visualized at various angles. OMNIPAQUE, 350 MG, 150ML 150ML used. After removing the current catheter a JL 4.0 INFINITI CATHETER FR 5 was advanced over a WIRE, EX CHANGE 260CM 8:48:42 3MMJ 260CM. After removing the current catheter a JL 4.0 INFINITI CATHETER FR 5 was advanced over a WIRE, EX CHANGE 260CM 8:51:38 3MMJ 260CM. 8:52:05 HR=70 bpm, NKQF=161/92 mmhg, SpO2=94.0 %, Resp=16 B/min, Pain=0, Dada=10, Skelton=2 8:53:33 The LCA was injected and visualized at various angles. OMNIPAQUE, 350 MG, 150ML 150ML used. 8:55:53 A WIRE, EXCHANGE 260CM 3MMJ 260CM was inserted via Radial (right). 8:56:00 Catheter was removed 8:56:02 Wire removed 8:56:31 Case End (Physician broke scrub) 8:57:10 HR=68 bpm, BAIZ=602/84 mmhg, SpO2=92.0 %, Resp=26 B/min, Pain=0, Dada=10, Skelton=2 8:57:58 Called CPCU. 8:59:01 Catheter(s) removed without difficulty Radial Compression Device Used. 16 mLs of air placed in BAND, RADIAL COMPRESSION TR LARGE 29 29CM. Affected 8:59:14 hand 97 % O2 saturation. 8:59:35 No case complications noted. 8:59:39 Bedside Report will be given. 8:59:41 A Left Heart Cath was performed. 9:02:13 HR=69 bpm, HQJD=579/65 mmhg, SpO2=96.0 %, Resp=20 B/min, Pain=0, Dada=10, Skelton=2 9:05:00 Vitals capture stopped. 9:11:31 Patient moved to [facility] End Study - Contrast Media Used In Study Contrast Total Opened (mL) Total Used (mL) Total Wasted (mL) Omnipaque 30 30 0 End Study - Maximum Contrast Load Max Contrast Load (mL) 634.5 End Study - Radiation Exposure Fluoro Time (minutes) 4.6 End Study - Sheaths Sheaths Pulled By Sheath Hold Time (min) Stephanie Motley End Study - Patient Disposition Complications Transferred To Interventional Outcome No Telemetry Bed No attempt made
[2018-08-12] MEDS ORDERED: Iohexol 350 MG/ML 50 ML Vial (for Cath Lab) IVCONTRAST ONE (09:35)
--- NOTE | 2018-08-12 10:34 | MA ---
cc: Saturnino Burr DO DATE: 08/12/2018 DATE OF PROCEDURE: 08/12/2018. PROCEDURE: Left heart catheterization, coronary angiogram, moderate sedation 15 minutes. PREPROCEDURE DIAGNOSES: Unstable angina, non-ST elevation myocardial infarction. POSTPROCEDURE DIAGNOSIS: Mild coronary artery disease. MEDICATIONS: Versed 1 mg, fentanyl 50 mcg, nitro 200 mcg, verapamil 2.5 mg, heparin 5000 units. CONTRAST USED: 30 mL FLUOROSCOPY: 4.6 minutes. MODERATE SEDATION: 15 minutes. FRAILTY QUALITY SCORE: Two. ESTIMATED BLOOD LOSS: 10 mL PROCEDURAL SUMMARY: Jesus Tubbs is a pleasant 53-year-old male who presented to [facility] Emergency Room due to chest pain. He had relatively typical chest pain in the center of his chest, radiating to his left arm. He was found to have an elevated troponin and because of this, he was recommended cardiac catheterization. Risks, benefits and alternatives were explained to him and he consented to such. He was brought to the lab and prepped in the usual sterile fashion. The right radial artery was accessed using modified Seldinger technique and placement of a 5/6-Singaporean slender sheath. This is easily aspirated and flushed. A JR4 was advanced over a J-wire to the ascending aorta and across the aortic valve for measurement of left ventricular pressure. This was pulled back across the aortic valve showing no significant gradient of aortic stenosis. JR4 was used for selective angiography of the right coronary artery system. This is exchanged out for a JL4, which was used for selective angiography of the left coronary artery system. JL4 was removed over a J-wire. Radial band was placed over the arteriotomy site for hemostasis. The patient left the builder's labourer cardiovascularly stable. FINDINGS: LEFT MAIN: Normal-sized vessel with no significant disease. It bifurcates into an LAD and circumflex. LAD: Moderate size vessel with 10%-20% disease throughout the mid and distal portion. It gives off one diagonal with no significant disease. LEFT CIRCUMFLEX: Moderate to large size vessel with no disease noted. It gives off 2 obtuse marginals with the first one having 20% ostial disease and the second one having no significant disease. Both have significant tortuosity most likely due to long-term hypertension. RCA: Moderate to large-sized vessel with mild luminal irregularities. Distally, it supplies the PDA as well as a posterolateral branch. LVEDP: 18. IMPRESSION: 1. Chest pain. 2. Elevated troponin. 3. Most likely hypertensive urgency causing both chest pain and elevated troponin. RECOMMENDATIONS: 1. Mr. Tubbs underwent cardiac catheterization and was found to have mild coronary artery disease. He will be recommended continued medical therapy. 2. We will check a 2-D echo to look at his overall left ventricular function, cardiac structure and possible valvulopathies. 3. Overall, he needs better blood pressure control. We will plan on adding Norvasc 5 mg daily to his current regimen. 4. If echo shows no concerns, we plan to discharge him later today. He may followup with me in the office. 5. I will have him followup with me in the office in the near future. Thank you for allowing me to see Jesus Tubbs. Saturnino Burr DO VGAllen/carri , 09:12 AM , 09:19 AM
--- NOTE | 2018-08-12 11:01 | ECHRPT ---
Indication: CORONARY ATHEROSCLEROSIS CONCLUSIONS Mild concentric left ventricular hypertrophy. Normal left ventricular size. The left ventricular systolic function is normal with an estimated ejection fraction in the range of 55-60%. There is trace tricuspid valve regurgitation. The estimated pulmonary arterial pressure is 28 mmHg. BP: / HR: Rhythm: MEASUREMENTS (Male / Female) Normal Values Technical Quality: 2D ECHO LV Diastolic Diameter PLAX 4.3 cm 4.2 - 5.9 / 3.9 - 5.3 cm LV Systolic Diameter PLAX 3.5 cm IVS Diastolic Thickness 1.8 cm 0.6 - 1.0 / 0.6 - 0.9 cm LVPW Diastolic Thickness 1.3 cm 0.6 - 1.0 / 0.6 - 0.9 cm LV Relative Wall Thickness 0.7 RV Internal Dim ED PLAX 3.4 cm LVOT Diameter 2.2 cm Aortic Root Diameter 2.6 cm LV Ejection Fraction MOD 4C 61.1 % LV Ejection Fraction 4C AL 62.0 % M-MODE LV Diastolic Diameter MM 7.4 cm 4.2 - 5.9 / 3.9 - 5.3 cm LV Systolic Diameter MM 5.9 cm LV Ejection Fraction MM Teich 40.7 % IVS Diastolic Thickness MM 1.5 cm 0.6 - 1.0 / 0.6 - 0.9 cm LVPW Diastolic Thickness MM 1.5 cm 0.6 - 1.0 / 0.6 - 0.9 cm LV Relative Wall Thickness MM 0.4 0.24 - 0.42 / 0.22 - 0.42 Aortic Root Diameter MM 4.1 cm LA Systolic Diameter MM 4.0 cm LA Ao Ratio MM 1.0 AV Cusp Separation MM 2.4 cm DOPPLER AV Peak Velocity 132.0 cm/s AV Peak Gradient 7.0 mmHg LVOT Peak Velocity 85.4 cm/s LVOT Peak Gradient 2.9 mmHg AV Area Cont Eq pk 2.5 cm Mitral E Point Velocity 39.0 cm/s Mitral A Point Velocity 66.1 cm/s Mitral E to A Ratio 0.6 LV E' Lateral Velocity 7.4 cm/s Mitral E to LV E' Lateral Ratio 5.3 LV E' Septal Velocity 9.3 cm/s Mitral E to LV E' Septal Ratio 4.2 TV Peak Velocity 233.0 cm/s TR Peak Velocity 213.0 cm/s TR Peak Gradient 18.1 mmHg Right Atrial Pressure 10.0 mmHg Pulmonary Artery Systolic Pressu 28.1 mmHg Right Ventricular Systolic Press 28.1 mmHg FINDINGS LEFT VENTRICLE Mild concentric left ventricular hypertrophy. Normal left ventricular size. The left ventricular systolic function is normal with an estimated ejection fraction in the range of 55-60%. RIGHT VENTRICLE Normal right ventricular size and systolic function. LEFT ATRIUM The left atrial size is normal. RIGHT ATRIUM The right atrial size is normal. ATRIAL SEPTUM Normal atrial septal thickness without atrial level shunting by limited color doppler interrogation. AORTA The aortic root and proximal ascending aorta are normal in size on limited imaging. MITRAL VALVE Structurally normal mitral valve. No mitral valve stenosis or regurgitation. AORTIC VALVE Trileaflet aortic valve. No aortic valve stenosis or regurgitation. TRICUSPID VALVE There is trace tricuspid valve regurgitation. The estimated pulmonary arterial pressure is 28 mmHg. PULMONARY VALVE No pulmonary valve regurgitation or stenosis. VESSELS The inferior vena cava is normal in size. PERICARDIUM No pericardial effusion. Ghassan Sen (Electronically Signed) Final Date:12 August 2018 11:01
--- NOTE | 2018-08-12 13:33 | P.PNCA ---
Subjective Interval history: No events overnight Cardiac cath with mild CAD Medications and Allergies Active Medications: Active Medications Acetaminophen (Tylenol) 650 mg PO Q4H PRN PRN Reason: Temp > 100.4 Last Admin: 08/11/18 03:54 Dose: 650 mg Al Hydroxide/Mg Hydroxide (Milk Of Magnesia Liq) 30 ml PO Q12H PRN PRN Reason: Mild Constipation Amlodipine Besylate (Norvasc) 5 mg PO DAILY [facility] Aspirin (Ecotrin) 81 mg PO DAILY [facility] Last Admin: 08/11/18 09:29 Dose: 81 mg Atorvastatin Calcium (Lipitor) 40 mg PO DAILY [facility] Last Admin: 08/11/18 09:29 Dose: 40 mg Bisacodyl (Dulcolax Supp) 10 mg RECTAL DAILY PRN PRN Reason: SEVERE CONSITIPATION Diazepam (Valium) 5 mg PO HS PRN PRN Reason: SLEEP Last Admin: 08/11/18 00:07 Dose: 5 mg Sodium Chloride (Ns Inj) 1,000 mls @ 100 mls/hr IV.CONT .Q10H [facility] Last Admin: 08/12/18 05:23 Dose: 100 mls/hr Lactulose (Lactulose Liq) 30 ml PO DAILY PRN PRN Reason: SEVERE CONSITIPATION Levothyroxine Sodium (Synthroid) 125 mcg PO DAILY@0600 [facility] Last Admin: 08/12/18 05:23 Dose: 125 mcg Metoprolol Tartrate (Lopressor) 25 mg PO BID [facility] Last Admin: 08/11/18 20:31 Dose: 25 mg Morphine Sulfate (Morphine Inj) 2 mg IV.PUSH Q4H PRN PRN Reason: PAIN 6-10 Nitroglycerin (Nitro-Bid 2% Oint) 0.5 inch TOPICAL Q6HR PRN PRN Reason: CHEST PAIN Ondansetron HCl (Zofran Inj) 4 mg IV.PUSH Q6H PRN PRN Reason: NAUSEA OR VOMITING Senna/Docusate Sodium (Paloma-Colace) 1 tab PO BID [facility] Last Admin: 08/11/18 20:31 Dose: 1 tab Sennosides (Senokot) 17.2 mg PO Q12H PRN PRN Reason: Moderate Constipation Sodium Chloride (Ns Flush) 2 ml IV.FLUSH BID [facility] Sodium Chloride (Ns Flush) 2 ml IV.FLUSH UNSCH PRN PRN Reason: FLUSH AFTER USING IV ACCESS Allergies Allergy/AdvReac Type Severity Reaction Status Date / Time No Known Allergies Allergy Verified 08/10/18 20:48 Home Medications Medication Instructions Recorded Confirmed Type aspirin 81 mg PO DAILY 08/10/18 08/10/18 History atorvastatin 40 mg PO DAILY 08/10/18 08/10/18 History hydrochlorothiazide 25 mg PO DAILY 08/10/18 08/10/18 History levothyroxine [Synthroid] 125 mcg PO DAILY 08/10/18 08/10/18 History Physical Exam Vital signs: Vital Signs 08/11/18 14:00 08/11/18 15:00 08/11/18 16:00 Temperature 98.4 F Pulse Rate 79 79 74 Respiratory Rate 17 Blood Pressure 129/77 Pulse Oximetry 94 L 08/11/18 17:00 08/11/18 18:00 08/11/18 19:00 Temperature Pulse Rate 67 68 71 Respiratory Rate Blood Pressure Pulse Oximetry 08/11/18 20:00 08/11/18 21:00 08/11/18 22:00 Temperature 98.4 F Pulse Rate 68 62 63 Respiratory Rate 16 Blood Pressure 139/70 Pulse Oximetry 95 08/11/18 23:00 08/12/18 00:00 08/12/18 01:00 Temperature 98.2 F Pulse Rate 67 71 78 Respiratory Rate 16 Blood Pressure 155/72 H Pulse Oximetry 08/12/18 02:00 08/12/18 03:00 08/12/18 03:07 Temperature 98.1 F Pulse Rate 65 67 71 Respiratory Rate 16 Blood Pressure 163/78 H Pulse Oximetry 08/12/18 04:00 08/12/18 05:00 08/12/18 05:51 Temperature Pulse Rate 66 64 78 Respiratory Rate Blood Pressure Pulse Oximetry 08/12/18 07:00 08/12/18 07:59 08/12/18 09:00 Temperature 98.4 F Pulse Rate 66 70 63 Respiratory Rate 18 Blood Pressure 137/71 Pulse Oximetry 95 08/12/18 10:00 08/12/18 12:00 Temperature Pulse Rate 82 97 H Respiratory Rate Blood Pressure Pulse Oximetry Intake & Output 08/11/18 08/12/18 08/12/18 18:59 06:59 18:59 Intake Total 1720 / 1720 1280 / 1280 Output Total 1100 / 1100 1325 / 1325 Balance 620 / 620 -45 / -45 Weight 126.9 kg Intake: IV 1000 / 1000 1250 / 1250 Heparin/D5W 25,000 U/250 mL 25, 250 / 250 000 unit In 250 ml @ Per Protocol IV.CONT TITRATE PRN Rx #:[id number] NS Inj 1,000 ML @ 100 mls/hr IV 1000 / 1000 1000 / 1000 .CONT .Q10H BIJAL Rx#:[id number] Oral 720 / 720 30 / 30 Output: Urine 1100 / 1100 1325 / 1325 Other: Date of Last Bowel Movement 08/10/18 Narrative: GENERAL: This is a well-nourished, well-developed patient, in no apparent distress. CARDIOVASCULAR: Normal rate and regular rhythm without murmurs, gallops, or rubs. RESPIRATORY: Good respiratory efforts. Breath sounds equal and clear to auscultation bilaterally. GASTROINTESTINAL: Abdomen soft, non-tender, non-distended. Normal active bowel sounds MUSCULOSKELETAL: Extremities without cyanosis, or edema. NEURO: Alert & Oriented x4 to person, place, time, situation. Moves all ext x4 PSYCH: Appropriate mood and affect. Results 08/12/18 02:22 08/12/18 02:22 Cardiac Enzymes 08/10/18 08/11/18 08/11/18 Range/Units 21:05 03:47 10:00 AST 60 H 40 H (15-37) U/L Troponin I 0.06 H 0.42 H 0.20 H (0.02-0.05) ng/mL 08/11/18 Range/Units 10:00 AST (15-37) U/L Troponin I Cancelled (0.02-0.05) ng/mL Coagulation 08/10/18 08/11/18 08/11/18 Range/Units 23:00 03:47 10:00 PT 9.8 (9.8-11.6) sec APTT 25.6 29.9 28.0 (24.3-30.1) sec 08/11/18 08/12/18 08/12/18 Range/Units 19:09 02:22 10:21 PT (9.8-11.6) sec APTT 26.1 29.9 33.1 H (24.3-30.1) sec Lipids 08/11/18 Range/Units 10:00 Triglycerides 351 H (42-150) mg/dL Cholesterol 225 H (120-200) mg/dL HDL Cholesterol 43.3 (40.0-60.0) mg/dL Cholesterol/HDL Ratio 5.19 Ratio CBC 08/10/18 08/11/18 08/11/18 Range/Units 21:05 03:47 10:00 WBC 8.6 9.2 9.7 (4.0-11.0) th/mm3 RBC 4.48 L 4.22 L 4.32 L (4.50-5.90) mil/mm3 Hgb 14.1 13.0 13.2 (13.0-17.0) gm/dL Hct 39.9 37.9 L 39.1 (39.0-51.0) % Plt Count 261 245 230 (150-450) th/mm3 Neut # (Auto) 5.7 6.4 (1.8-7.7) th/mm3 Lymph # (Auto) 2.2 2.6 (1.0-4.8) th/mm3 [place] # (Auto) 0.6 0.5 (0.0-0.9) th/mm3 Eos # (Auto) 0.1 0.1 (0.0-0.4) th/mm3 Baso # (Auto) 0.1 0.1 (0.0-0.2) th/mm3 08/12/18 Range/Units 02:22 WBC 6.9 (4.0-11.0) th/mm3 RBC 4.18 L (4.50-5.90) mil/mm3 Hgb 12.8 L (13.0-17.0) gm/dL Hct 37.7 L (39.0-51.0) % Plt Count 222 (150-450) th/mm3 Neut # (Auto) (1.8-7.7) th/mm3 Lymph # (Auto) (1.0-4.8) th/mm3 [place] # (Auto) (0.0-0.9) th/mm3 Eos # (Auto) (0.0-0.4) th/mm3 Baso # (Auto) (0.0-0.2) th/mm3 Comprehensive Metabolic Panel 08/10/18 08/11/18 08/12/18 Range/Units 21:05 10:00 02:22 Sodium 140 139 140 (136-145) meq/L Potassium 4.0 3.1 L D 3.5 (3.5-5.1) meq/L Chloride 107 105 107 (98-107) meq/L Carbon Dioxide 24.1 24.9 26.7 (21.0-32.0) meq/L BUN 18 16 15 (7-18) mg/dL Creatinine 1.25 1.16 1.07 (0.60-1.30) mg/dL Calcium 8.8 8.6 8.2 L (8.5-10.1) mg/dL AST 60 H 40 H (15-37) U/L ALT 50 42 (12-78) U/L Alkaline Phosphatase 75 69 (45-117) U/L Total Protein 8.0 7.4 D (6.4-8.2) g/dL Albumin 3.7 3.5 (3.4-5.0) g/dL Intake and Output 08/11/18 08/12/18 08/12/18 22:59 06:59 14:59 Intake Total 970 / 970 1030 / 1030 Output Total 1100 / 1100 1325 / 1325 Balance -130 / -130 -295 / -295 Intake: IV 250 / 250 1000 / 1000 Heparin/D5W 25,000 U/250 mL 25, 250 / 250 000 unit In 250 ml @ Per Protocol IV.CONT TITRATE PRN Rx #:[id number] NS Inj 1,000 ML @ 100 mls/hr IV 1000 / 1000 .CONT .Q10H [facility] Rx#:[id number] Oral 720 / 720 30 / 30 Output: Urine 1100 / 1100 1325 / 1325 Other: Date of Last Bowel Movement 08/10/18 08/10/18 Weight 126.9 kg - Imaging and Cardiology Imaging: Impressions Chest X-Ray 08/10/18 21:01 CONCLUSION: No acute cardiopulmonary disease identified. Assessment and Plan - Assessment (1) ACS (acute coronary syndrome) Code(s): I24.9 - Acute ischemic heart disease, unspecified Status: Acute (2) HTN (hypertension) Code(s): I10 - Essential (primary) hypertension Status: Acute - Plan 1) Chest pain/elevated troponin Cath with mild CAD Con't medical management Possible secondary to hypertensive episode 2) Add Norvasc 5mg 3) EF 55-60% 4) Cardiovascularly stable for discharge today
--- NOTE | 2018-08-12 15:16 | P.DS ---
Date of admission: 08/10/18 22:39 Primary care physician: UNKNOWN Brief History from admission: This is a 53-year-old male with PMH of HTN, Hyperlipidemia and Hypothyroidism who presented to the ER for c/o chest pain. Pt states he had acute onset of substernal "discomfort" earlier this evening, mild-moderate, w/ radiation to left arm. 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 Denies personal h/o cardiac disease, biological mother at age 40yrs-possibly from Acute [place], Father at 93yrs. On arrival, BP 177/100, HR 74, O2 sat 96% on RA, Afebrile. CBC unremarkable. INR 1.0. Chemistry unremarkable. GFR 60. Troponin 0.06. CXR with no acute findings. S/p ASA and NTG in ER w/ some improvement in chest pain, currently pain 1-2/10. Heparin gtt started. DS: Diagnosis - Discharge Diagnosis (1) ACS (acute coronary syndrome) Status: Acute (2) HTN (hypertension) Status: Acute DS: Medications - Discharge Medications Prescriptions: amlodipine [Norvasc] 5 mg PO DAILY #30 tab metoprolol tartrate 25 mg PO BID #60 tab DS: Summary Hospital Course: 53-year-old male with: Acute coronary syndrome/NSTEMI: -Patient treated with heparin drip, nitro, Lipitor, Lopressor, statin. Morphine as needed -Cardiology followed the patient. He underwent heart catheterization which showed mild CAD. No indication for intervention. Symptoms could be related to uncontrolled hypertension. Per cardiology recommendations, add Norvasc to his medication regiment HTN: Uncontrolled. BP 170's on arrival, likely compounded by chest pain. Started on Metoprolol as above and Norvasc. His blood pressure improved. -Patient advised to keep a log of his blood pressure medications at home and bring to PCP. Hypothyroidism: - Continue Synthroid. - Time Spent with Patient Total time spent providing and/or coordinating discharge services: Less than 30 minutes - Quality: VTE Deep Vein Thrombosis/Pulmonary Embolism Present on Admission: No Exam Vital signs: Vital Signs 08/11/18 16:00 08/11/18 17:00 08/11/18 18:00 Temperature 98.4 F Pulse Rate 74 67 68 Respiratory Rate 17 Blood Pressure 129/77 Pulse Oximetry 94 L 08/11/18 19:00 08/11/18 20:00 08/11/18 21:00 Temperature 98.4 F Pulse Rate 71 68 62 Respiratory Rate 16 Blood Pressure 139/70 Pulse Oximetry 95 08/11/18 22:00 08/11/18 23:00 08/12/18 00:00 Temperature 98.2 F Pulse Rate 63 67 71 Respiratory Rate 16 Blood Pressure 155/72 H Pulse Oximetry 08/12/18 01:00 08/12/18 02:00 08/12/18 03:00 Temperature Pulse Rate 78 65 67 Respiratory Rate Blood Pressure Pulse Oximetry 08/12/18 03:07 08/12/18 04:00 08/12/18 05:00 Temperature 98.1 F Pulse Rate 71 66 64 Respiratory Rate 16 Blood Pressure 163/78 H Pulse Oximetry 08/12/18 05:51 08/12/18 07:00 08/12/18 07:59 Temperature 98.4 F Pulse Rate 78 66 70 Respiratory Rate 18 Blood Pressure 137/71 Pulse Oximetry 95 08/12/18 09:00 08/12/18 10:00 08/12/18 12:00 Temperature Pulse Rate 63 82 97 H Respiratory Rate Blood Pressure Pulse Oximetry Intake & Output 08/11/18 08/12/18 08/12/18 18:59 06:59 18:59 Intake Total 1720 / 1720 1280 / 1280 Output Total 1100 / 1100 1325 / 1325 Balance 620 / 620 -45 / -45 Weight 126.9 kg Intake: IV 1000 / 1000 1250 / 1250 Heparin/D5W 25,000 U/250 mL 25, 250 / 250 000 unit In 250 ml @ Per Protocol IV.CONT TITRATE PRN Rx #:[id number] NS Inj 1,000 ML @ 100 mls/hr IV 1000 / 1000 1000 / 1000 .CONT .Q10H [facility]IJAL Rx#:[id number] Oral 720 / 720 30 / 30 Output: Urine 1100 / 1100 1325 / 1325 Other: Date of Last Bowel Movement 08/10/18 Narrative: GENERAL: This is a well-nourished, well-developed patient, in no apparent distress. CARDIOVASCULAR: Normal rate and regular rhythm without murmurs, gallops, or rubs. RESPIRATORY: Good respiratory efforts. Breath sounds equal and clear to auscultation bilaterally. GASTROINTESTINAL: Abdomen soft, non-tender, non-distended. Normal active bowel sounds MUSCULOSKELETAL: Extremities without cyanosis, or edema. NEURO: Alert & Oriented x4 to person, place, time, situation. Moves all ext x4 PSYCH: Appropriate mood and affect. Results Procedures completed during hospitalization: Heart catheterization Labs on day of discharge: Labs from last 24 hours 08/12/18 08/12/18 08/12/18 10:21 02:22 02:22 WBC RBC Hgb Hct MCV MCH MCHC RDW Plt Count MPV APTT 33.1 H 29.9 Sodium 140 Potassium 3.5 Chloride 107 Carbon Dioxide 26.7 Anion Gap 6 BUN 15 Creatinine 1.07 Estimated GFR 72 L Random Glucose 91 Calcium 8.2 L TSH 08/12/18 08/11/18 08/11/18 02:22 19:09 10:00 WBC 6.9 RBC 4.18 L Hgb 12.8 L Hct 37.7 L MCV 90.2 MCH 30.7 MCHC 34.1 RDW 13.8 Plt Count 222 MPV 8.4 APTT 26.1 Sodium Potassium Chloride Carbon Dioxide Anion Gap BUN Creatinine Estimated GFR Random Glucose Calcium TSH 4.350 H - Impressions ITS Impressions Chest X-Ray 08/10/18 21:01 CONCLUSION: No acute cardiopulmonary disease identified. Discharge Plan - Discharge Disposition Patient Disposition: 01 Discharge Home - Discharge Condition Condition: Good - Discharge Order Discharge Orders: Discharge Order (Routine); Ordered 08/12/18 Ordered By: Marcy Vargas - Physicians Team Primary Care Provider: UNKNOWN, Attending Provider: Marcy Vargas Other Providers: Saturnino Burr DO
--- NOTE | 2018-08-12 16:05 | ECG ---
Date Performed: 08/11/2018 Time Performed: 03:39:18 PTAGE: 53 years EKG: Sinus rhythm . Normal ECG Since PREVIOUS TRACING , no significant change noted PREVIOUS TRACIN08/10/2018 20.57.33 DOCTOR: Addi Bradley Interpretating Date/Time 08/12/2018 16:04:11
[2018-08-12 16:35] VITALS: PULSE 60
[2018-08-13] MEDS ORDERED: amLODIPine 5 MG Tablet PO SCH (09:00)
== END 2018-08-12 17:58 | disposition home or self-care (01) ==
LOC: NEDA 20:39 → NEPC 20:39 → NEDA 08-11 00:31 → HCPC 08-11 00:32
PROVIDERS: ADMIT Family Medicine; ATTEND Family Medicine